=== PATIENT | male | born 1965 | race Caucasian/White ===

== ENCOUNTER 2018-01-02 07:39 | Outpatient (CLI) | payer OTHER | END 2018-01-02 07:52 | disposition home or self-care (01) | LOC: TOM 07:39 | DX: R10.31 Right lower quadrant pain (principal) ==

== ENCOUNTER 2019-12-26 09:54 | Day surgery (SDC) | payer OTHER | END 2019-12-26 18:00 | disposition home or self-care (01) | LOC: CIR.AMB 09:54 | PROVIDERS: ATTEND Orthopaedic Surgery | DX: M75.121 Complete rotator cuff tear or rupture of right shoulder, not specified as traumatic (principal); M75.21 Bicipital tendinitis, right shoulder; M19.011 Primary osteoarthritis, right shoulder; Z20.828 Contact with and (suspected) exposure to other viral communicable diseases ==